=== PATIENT | female | born 1995 | race Caucasian/White ===

== ENCOUNTER 2022-03-31 13:45 | Emergency (ER) | payer MEDICAID ==
[~2022-03-31] VITALS: Ht 149.9 cm; Wt 82.1 kg
[2022-03-31 14:09] VITALS: BP_SYST 144
[2022-03-31 15:37] LABS: BASOPHILS % (AUTO) 0.6 % (0.0-2.0); EOSINOPHILS % (AUTO) 0.7 % (0.0-4.0); HEMATOCRIT 35.9 % (36-48); HEMOGLOBIN 12.2 g/dL (12.0-16.0); LYMPHOCYTES # (AUTO) 0.9 K/uL (1.0-5.5); MEAN CORPUSCULAR HEMOGLOBIN 28 pg (27-31); MEAN CORPUSCULAR HGB CONC 34 % (32-36); MEAN CORPUSCULAR VOLUME 83 fL (79.0-98.0); MONOCYTES # (AUTO) 0.2 K/uL (0.0-1.0); MONOCYTES % (AUTO) 7.7 % (1.7-9.3); NEUTROPHILS # (AUTO) 1.9 K/uL (1.8-7.7); PLATELET COUNT (AUTO) 210 K/uL (130-430); RED BLOOD CELL COUNT(AUTO) 4.31 MIL/uL (4.2-6.2); RED CELL DISTRIBUTION WIDTH 13.2 % (9.0-15.0); WHITE BLOOD COUNT (AUTO) 3.1 K/uL (4.8-10.8)
--- NOTE | 2022-03-31 15:43 | NUR ---
Nasal specimen collected from nares. Pt tolerated well, sent to lab.
--- NOTE | 2022-03-31 15:45 | NUR ---
Pt presents to the ER BIB self with Covid like symptoms. Pt notes 48 hours ago symptoms began, sore throat, congestion and productive cough, general fatigue and nausea and loss of appetite. Pt denies diarrhea and vomiting. aaox4, even unlabored breathing, NAD, Pt is 13 weeks .
[2022-03-31 15:50] LABS: CALCIUM 9.3 mg/dL (8.4-11.0); CREATININE 0.58 mg/dL (0.55-1.30); POTASSIUM 3.5 mmol/L (3.5-5.1)
[2022-03-31 15:51] LABS: INR 0.9 (0.8-1.2); PROTHROMBIN TIME 9.2 SECS (9.5-12.5)
[2022-03-31 15:55] LABS: ALBUMIN 3.1 g/dL (3.4-4.8); TOTAL BILIRUBIN 0.1 mg/dL (0.0-1.0)
[2022-03-31 16:48] LABS: BILIRUBIN,URINE NEGATIVE (NEGATIVE); BLOOD, URINE NEGATIVE (NEGATIVE); CLARITY/URINE CLOUDY (CLEAR); COLOR,URINE YELLOW (YELLOW); GLUCOSE,URINE NEGATIVE (NEGATIVE); KETONES,URINE 1+ (NEGATIVE); LEUKOCYTE ESTERASE ,URINE NEGATIVE (NEGATIVE); NITRITE, URINE NEGATIVE (NEGATIVE); PH,URINE 5.5 (5.0-8.0); PROTEIN URINE TRACE (NEGATIVE)
[2022-03-31 17:09] LABS: BACTERIA,URINE RARE /HPF (None Seen); MUCUS,URINE None Seen /LPF (None Seen); RBC,URINE 0-3 /HPF (0-3); URINE AMORPHOUS URATE 3+ /HPF (None Seen); WBC,URINE 0-3 /HPF (0-3)
[2022-03-31] MEDS ORDERED: ONDANSETRON HCL 4 MG/2 ML VIAL IVP ONE (17:45)
[2022-03-31] MEDS ORDERED: NACL 0.9% 2,000 ML IV ONE (17:45)
[2022-03-31] MEDS ORDERED: NACL 0.9% 1,000 ML IV ONE (18:15)
--- NOTE | 2022-03-31 19:29 | NUR ---
Gave report to Jules TALAVERA. Pt VSS, NAD, IV flushes in right hand 20 gauge no phlebitis.
--- NOTE | 2022-03-31 19:46 | NUR ---
ASSESSED PT/PT VS ARE WITHIN NORMAL LIMITS/ADJUST IV CATH BCS FLUIDS WERE NOT INFUSING/PT DENIES ANY CHEST PAINS. PLACED PT ON MONITOR, BED LOWERED LOCKED, RAILS UP. WILL CONTINUE TO MONITOR.
--- NOTE | 2022-03-31 20:19 | NUR ---
pt left AMA/FORM SIGNED
[2022-03-31 20:54] VITALS: BP_SYST 94
--- NOTE | 2022-04-01 16:55 | NUR ---
RECEIVED LAB REPORT FOR PRELIMINARY POSITIVE BLOOD CULTURE: GRAM STAIN: GRAM POSITIVE COCCI IN CLUSTER FROM AEROBIC BOTTLE. REVIEWED WITH ER DR. BELLA WHO RECOMMMENDS TO WAIT FOR FINAL CLS REPORT TO CONFIRM THAT SPECIMEN WAS NOT CONTAMINATED.
== END 2022-03-31 20:52 | disposition left against medical advice (07) ==
LOC: SED 13:45
DX: O98.511 Other viral diseases complicating pregnancy, first trimester (principal); Z3A.13 13 weeks gestation of pregnancy
CPT/HCPCS: 99283; 96360; 87426; 80053; 81000; 85025; 85610; 85730; 87040; 87086; 36415; 83605; 87804 ×2; J7030